=== PATIENT | male | born 1955 | race Caucasian/White ===

== ENCOUNTER 2024-07-21 07:32 | Day surgery (SDC) | payer MEDICARE, BC, SELFPAY ==
--- OUTSIDE RECORDS SUMMARY | 2024-07-01 09:20 | XMS_ITS ---
Author Organization [facility] Address [address] [place] [address] Care Team Providers Care Digital Marketing Officer Name Role Phone TONNY CHAWLA CNP Primary Care Provider Keenan Tolliver Jr Unavailable ALLERGIES No Known Allergies REASON FOR VISIT Patient presents today for constipation MEDICATIONS Medication SIG (Take, Route, Frequency, Duration) Notes Start Date End Date Status Anusol-HC 25 MG 1 suppository Rectal Once a day for 14 day(s) 12/18/2023 Active Omeprazole 20 MG 1 capsule 30 minutes before morning meal Orally Once a day for 30 day(s) 07/25/2023 Active MiraLax (colon prep) 17 GM/SCOOP mixed with Gatorade or Crystal Light Orally begin at 5:00 p.m. the day before the procedure for 1 day 12/18/2023 Active Ciprofloxacin HCl 500 MG TAKE 1 TABLET BY MOUTH TWICE DAILY Oral for 28 N410,Unavailab le Active Triamcinolone Acetonide 0.1 % External for 25 L299,Unavailab le Active Tamsulosin HCl 0.4 MG 1 capsule Orally O nce a day for 30 day(s) 06/17/2023 Active Atorvastatin Calcium 40 MG 1 tablet Orally Once a day for 30 day(s) 06/17/2023 Active Irbesartan 150 MG Oral for 90 Active Finasteride 5 MG 1 tablet Orally Once a day for 30 day(s) 06/17/2023 Active Aspirin 81 81 MG 1 tablet Orally Once a day for 30 day(s) 06/17/2023 Active SOCIAL HISTORY Tobacco Use: Social History Observation Description Date Details (start date - stop date) Never Smoker NA - NA Sex Assigned At : Social History Observation Description Sex Assigned At Unknown Tobacco Use/Smoking Question Answer Notes Patient is a nonsmoker Alcohol Screen Question Answer Notes Did you have a drink contain ing alcohol in the past year? Yes How often did you have a dri nk containing alcohol in the past year? Never (0 point) How many drinks did you have on a typical day when you were drinking in the past year? 1 or 2 drinks (0 point) How often did you have 6 or more drinks on one occasion in the past year? Never (0 point) Points 0 Interpretation Negative PROBLEMS Problem Type ICD Code Onset Dates Problem Status W/U Status Risk SNOMED Code Notes Problem Colon cancer screening (Z12.11) Active confirmed 568713000 VITAL SIGNS BMI 28.50 kg/m2 12/18/2023 Blood pressure systolic 000 mm Hg 12/18/19 24 Blood pressure diastolic 00 mm Hg 024 Height 5 ft 7 in in 12/18/2023 Temperature 98.2 degrees Fahrenheit 12/18/19 24 Weight 182 lbs 12/18/2023 Encounters Encounter Location Date Provider Diagnosis [facility] [address] [place] [phone] 12/18/2023 Keenan Lopez Jr Colon cancer screening Z12.11 ; Gastroesophageal reflux disease, unspecified whether esophagitis present K21.9 and Irritable bowel syndrome, unspecified type K58.9 ASSESSMENTS Encounter Date Diagnosis Assessment Notes Treatment Notes Treatment Clinical Notes 12/18/2023 Colon cancer screeni ng (ICD-10 - Z12.11) 12/18/2023 Gastroesophageal ref lux disease, unspecified whether esophagitis present (ICD-10 - K21.9) 12/18/2023 Irritable bowel syndrome, unspecified type (ICD-10 - K58.9) PLAN OF TREATMENT Medication Medication Name Sig Start Date Stop Date Notes Anusol-HC 25 MG 1 suppository Rectal Once a day for 14 day(s) 12/18/2023 MiraLax (colon prep) 17 GM/SCOOP mixed with Gatorade or Crystal Light Orally begin at 5:00 p.m. the day before the procedure for 1 day 12/18/2023 Future Test Test Name Order Date COLONOSCOPY 12/18/2023 Next Appt Details Follow Up: 1 Year, Reason: Provider Name:Keenan garcia Jr, 07/21/2024 09:10:00 AM, [address] [place] [address] , [place], [place], [phone],
--- OUTSIDE RECORDS SUMMARY | 2024-07-01 09:20 | XMS_ITS | Patient Health Record ---
Author Organization [facility] Address [address] [place] [address] Care Team Providers Care Mathematical Sciences Professor Name Role Phone TONNY CHAWLA CNP Primary Care Provider Keenan Tolliver Jr Unavailable [phone] ALLERGIES No Known Allergies REASON FOR REFERRAL No Information MEDICATIONS Medication SIG (Take, Route, Frequency, Duration) Notes Start Date End Date Status Anusol-HC 25 MG 1 suppository Rectal Once a day for 14 day(s) 12/18/2023 Active Omeprazole 20 MG 1 capsule 30 minutes before morning meal Orally Once a day for 30 day(s) 07/25/2023 Active Tamsulosin HCl 0.4 MG 1 capsule Orally O nce a day for 30 day(s) 06/17/2023 Active Atorvastatin Calcium 40 MG 1 tablet Orally Once a day for 30 day(s) 06/17/2023 Active MiraLax (colon prep) 17 GM/SCOOP mixed with Gatorade or Crystal Light Orally begin at 5:00 p.m. the day before the procedure for 1 day 12/18/2023 Active Ciprofloxacin HCl 500 MG TAKE 1 TABLET BY MOUTH TWICE DAILY Oral for 28 N410,Unavailab le Active Triamcinolone Acetonide 0.1 % External for 25 L299,Unavailab le Active Irbesartan 150 MG Oral for 90 Active Finasteride 5 MG 1 tablet Orally Once a day for 30 day(s) 06/17/2023 Active Aspirin 81 81 MG 1 tablet Orally Once a day for 30 day(s) 06/17/2023 Active Omeprazole 20 MG 1 Orally Once a day every morning for 90 days 02/28/2024 Active IMMUNIZATIONS Vaccine Route Administration Date Status Comme nts Influenza Unknown 04/30/2023 Administered SOCIAL HISTORY Tobacco Use: Social History Observation [...] W/U Status Risk SNOMED Code Notes Problem Gastroesophageal reflux disease, unspecified whether esophagitis present (K21.9) Active confirmed [id number] Problem Irritable bowel syndrome, unspecified type (K58.9) Active confirmed 39426300 Problem Colon cancer screening (Z12.11) Active confirmed [id number] VITAL SIGNS Temperature 98.2 degrees Fahrenheit 12/18/2023 Blood pressure diastolic 00 mm Hg 12/18/2023 Height 5 ft 7 in in 12/18/2023 Blood pressure systolic 000 mm Hg 12/18/2023 Weight 182 lbs 12/18/2023 BMI 28.50 kg/m2 12/18/2023 Encounters Encounter Location Date Provider Diagnosis [facility] [address] [place] [phone] 12/18/2023 Keenan Lopez Jr Colon cancer screening Z12.11 ; Gastroesophageal reflux disease, unspecified whether esophagitis present K21.9 and Irritable bowel syndrome, unspecified type K58.9 [facility] [address] [place] [phone] 07/25/2023 Keenan Lopez Jr Gastroesophageal reflux disease, unspecified whether esophagitis present K21.9 and Irritable bowel syndrome, unspecified type K58.9 [facility] [address] [place] [phone] 02/28/2024 Keenan Lopez Jr ASSESSMENTS Encounter Date Diagnosis Assessment Notes Treatment Notes Treatment Clinical Notes 12/18/2023 Colon cancer screening (ICD-10 - Z12.11) 12/18/2023 Gastroesophageal reflux disease, unspecified whether esophagitis present (ICD-10 - K21.9) 07/25/2023 Irritable bowel syndrome, unspecified type (ICD-10 - K58.9) 07/25/2023 Gastroesophageal reflux disease, unspecified whether esophagitis present (ICD-10 - K21.9) Gastroesophageal reflux disease material was printed 12/18/2023 Irritable bowel syndrome, unspecified type (ICD-10 - K58.9) PLAN OF TREATMENT Future Test Test Name Order Date COLONOSCOPY 12/18/2023 Next Appt Details Provider Name:Keenan garcia Jr, 07/21/2024 09:10:00 AM, [address] [place] [address] , [place], [place], [phone], Insurance Providers Payer Name Payer Address Payer Phone Subscriber Number Group Number Insured Name Patient Relationship to Insured Coverage Start Date Coverage End Date MEDICARE OF [place] [address] [place], [place] [id number] JUAN MITCHELL Self - patient is the insured [facility] [address] [place] [address] [id number] JUAN MITCHELL Self - patient is the insured MEDICAL (GENERAL) HISTORY Medical History History ICD Code Hypertension Coronary artery disease IBS with diarrhea and constipation MGUS BPH Gastroesophageal reflux disease Hyperlipidemia Gastroesophageal reflux disease, EGD , fundic gland polyps. Colonoscopy 08/03, tubular adenoma, 7 mm, five-year followup Surgical History Surgery Date(Month/Year) CABG x3 2017 lithotripsy 2018 Cataract repair Hospitalization History Reason Date(Month/Year) Hyponatremia 2014
--- OUTSIDE RECORDS SUMMARY | 2024-07-01 09:20 | XMS_ITS ---
Author Organization [facility] Address [address] [place] [phone] Care Team Providers Care Swimming Pool Service Technician Name Role Phone TONNY CHAWLA CNP Primary Care Provider Fredrick Lopez Jr, Keenan Camarena REASON FOR VISIT NEEDS REFILL ON OMEPRAZOLE MEDICATIONS Medication SIG (Take, Route, Fr equency, Duration) Notes Start Date End Date Status Omeprazole 20 MG 1 Orally Once a day every morning for 90 days 02/28/2024 Active Encounters Encounter Location Date Provider Diagnosis [facility] [address] [place] [phone] 02/28/2024 Keenan Lopez Jr PLAN OF TREATMENT Medication Medication Name Sig Start Date Stop Date Notes Omeprazole 20 MG 1 Orally Once a day every morning for 90 days 02/28/2024 Next Appt Details Provider Name:Keenan garcia Jr, 07/21/2024 09:10:00 AM, [address] [facility] , [place], [place], [phone],
--- OUTSIDE RECORDS SUMMARY | 2024-07-01 09:20 | XMS_ITS ---
Author Organization [facility] Address [address] [place] [address] Care Team Providers Care Kitchen Food Server Name Role Phone TONNY CHAWLA CNP Primary Care Provider Keenan Tolliver Jr Unavailable ALLERGIES No Known Allergies REASON FOR VISIT patient presents today for change in bowels MEDICATIONS Medication SIG (Take, Route, Frequency, Duration) Notes Start Date End Date Status Omeprazole 20 MG 1 capsule 30 minutes before morning meal Orally Once a day for 30 day(s) 07/25/2023 Active Atorvastatin Calcium 40 MG 1 tablet Orally Once a day for 30 day(s) 06/17/2023 Active Tamsulosin HCl 0.4 MG 1 capsule Orally Once a day for 30 day(s) 06/17/2023 Active Triamcinolone Acetonide 0.1 % External for 25 L299,Unavailabl e Active Ciprofloxacin HCl 500 MG TAKE 1 TABLET BY MOUTH TWICE DAILY Oral for 28 N410,Unavailabl e Active Irbesartan 150 MG Oral for 90 Active Aspirin 81 81 MG 1 tablet Orally Once a day for 30 day(s) 06/17/2023 Active Finasteride 5 MG 1 tablet Orally [...] Never (0 point) Points 0 Interpretation Negative VITAL SIGNS BMI 29.60 kg/m2 07/25/2023 Blood pressure systolic 00 mm Hg 07/25/19 24 Blood pressure diastolic 00 mm Hg 024 Height 5 ft 7 in in 07/25/2023 Temperature 97.7 degrees Fahrenheit 07/25/19 24 Weight 189 lbs 07/25/2023 Encounters Encounter Location Date Provider Diagnosis [facility] [address] [place] [address] 07/25/2023 Keenan Lopez Jr Gastroesophageal reflux disease, unspecified whether esophagitis present K21.9 and Irritable bowel syndrome, unspecified type K58.9 ASSESSMENTS Encounter Date Diagnosis Assessment Notes Treatment Notes Treatment Clinical Notes 07/25/2023 Gastroesophageal reflux disease, unspecified whether esophagitis present (ICD-10 - K21.9) Gastroesophageal reflux disease material was printed 07/25/2023 Irritable bowel syndrome, unspecified type (ICD-10 - K58.9) PLAN OF TREATMENT Medication Medication Name Sig Start Date Stop Date Notes Omeprazole 20 MG 1 capsule 30 minutes before morning meal Orally Once a day for 30 day(s) 07/25/2023 Treatment Notes Assessment Notes Gastroesophageal reflux dise ase, unspecified whether esophagitis present Gastroesophageal reflux disease material was printed Next Appt Details Follow Up: 6 Months, Reason: Provider Name:Keenan garcia Jr, 07/21/2024 09:10:00 AM, [address] [place] [address] , [place], [place], [phone],
[2024-07-17 15:27] VITALS: BMI 28.5
--- NOTE | 2024-07-20 09:41 | P.CONAN_ITS ---
Documented by User: Shaunna Sanders NP 07/20/24 09:44 HPI - Anesthesia Eval Consult details Narrative: 69yo M for Colonoscopy CAD s/p CABG 2016. Follows [facility] cardiology yearly - stable at 04/2024 office visit [facility] Past Medical History Medical History Hyperlipidemia GERD (gastroesophageal reflux disease) BPH (benign prostatic hyperplasia) MGUS (monoclonal gammopathy of unknown significance) IBS (irritable bowel syndrome) CAD (coronary artery disease) HTN (hypertension) Surgical History Surgical History Hx of cataract extraction Hx of lithotripsy (~2017) Hx of CABG (~2016) Hx of colonoscopy (~07/2019) History of esophagogastroduodenoscopy (EGD) (~06/2022) Social History Social History Patient Tobacco Use Status: Never used Tobacco Advance Directives: No Advance Directives Information Provided: Yes Meds Allergies Allergy/AdvReac Type Severity Reaction Status Date / Time No Known Allergies Allergy Verified 07/21/24 08:23 Home Medications ?Medication ?Instructions ?Recorded ?Confirmed ?Last Taken ?Type aspirin 81 mg tablet,delayed 81 mg PO DAILY 07/17/24 07/21/24 Unknown History release atorvastatin 40 mg tablet 40 mg PO DAILY 07/17/24 07/21/24 Unknown History finasteride 5 mg tablet 5 mg PO DAILY 07/17/24 07/21/24 07/21/24 History irbesartan 150 mg tablet 150 mg PO DAILY 07/17/24 07/21/24 Unknown History omeprazole 20 mg capsule,delayed 20 mg PO QAM 07/17/24 07/21/24 07/21/24 History release tamsulosin 0.4 mg capsule 0.8 mg PO BEDTIME 07/17/24 07/21/24 Unknown History Exam Height,Weight and Vital Signs: Height 5 ft 7 in Weight 82.554 kg Pertinent Lab Results Pertinent Lab Results: Lab ResultsCardiology Labs WBC: 8.3 x10E3/uL (04/13/24) RBC: 4.76 (04/13/24) Hgb:?11.9 Gm/dL?Low (04/13/24) Hct: 38.9 % (04/13/24) MCV: 82 fL (04/13/24) MCH:?25 pg?Low (04/13/24) MCHC:?30.6 Gm/dL?Low (04/13/24) Platelet Count: 290 x10E3/uL (04/13/24) RDW-SD: 42.9 femtoliters (09/02/23) Nucleated RBC (Automated): 0 #/100 WBC'S (09/02/23) Abs. Neut: 4.2 x10E3/uL (04/13/24) Abs. Lymph: 2 x10E3/uL (04/13/24) Abs. [place]: 0.9 x10E3/uL (04/13/24) Abs. Eo:?1.1 x10E3/uL?High (04/13/24) Abs. Baso: 0.1 x10E3/uL (04/13/24) Neut %: 51 % (04/13/24) [place]asta %: 11 % (04/13/24) Eos %: 13 % (04/13/24) Baso %: 1 % (04/13/24) Imm Gran: 0 % (04/13/24) Abs. Imm Gran: 0 x10E3/uL (04/13/24) Sodium: 137 mmol/L (04/13/24) Potassium: 4.5 mmol/L (04/13/24) Chloride: 101 mmol/L (04/13/24) Bicarbonate Level: 21 mmol/L (04/13/24) Glucose Level: 91 mg/dL (04/13/24) Hemoglobin A1C (Monitoring):?6 %?High (04/08/24) BUN: 14 mg/dL (09/02/23) BUN: 22 mg/dL (04/13/24) Creatinine-Blood: 0.88 mg/dL (04/13/24) Calcium: 9.7 mg/dL (04/13/24) Protein, Total: 7.4 Gm/dL (04/08/24) Protein, Total: 7.5 g/dL (04/08/24) Albumin: 4.2 Gm/dL (04/08/24) Albumin: 4.4 g/dL (04/08/24) Alkaline Phosphatase: 88 IU/L (04/08/24) Alkaline Phosphatase: 90 IU/L (04/08/24) AST (SGOT): 28 IU/L (04/08/24) AST (SGOT): 28 IU/L (04/08/24) ALT (SGPT): 22 IU/L (04/08/24) ALT (SGPT): 20 IU/L (04/08/24) Bilirubin, Total: 0.6 mg/dL (04/08/24) Bilirubin, Total: 0.5 mg/dL (04/08/24) Cholesterol: 126 mg/dL (09/02/23) Triglycerides: 70 mg/dL (09/02/23) HDL Cholesterol: 49 mg/dL (09/02/23) LDL Cholesterol: 63 mg/dL (09/02/23) Non HDL Cholesterol: 77 mg/dL (09/02/23) Narrative Narrative: ECGECG 12-Lead ? 23:12:58 Please click on pdf link to open report ? Signed By: Bishop Briggs MD ? ECG 12-Lead ? 23:12:58 Ventricular Rate: 73 BPM Atrial Rate: 73 BPM P-R Interval: 158 ms QRS Duration: 110 ms Q-T Interval: 388 ms QTC Calculation(Bazett): 427 ms P [place]: 36 degrees R [place]: -14 degrees T [place]: 13 degrees Sinus rhythm with occasional Premature ventricular complexes Moderate voltage criteria for LVH, may be normal variant ( R in aVL , Jose product ) Incomplete right bundle branch block When compared with ECG of 25-AUG-2023 22:54, Premature ventricular complexes are now Present Confirmed by JAIME BRIGGS MD ([id number]) on 08/26/2023 9:00:54 PM [place]: JAIME BRIGGS MD ? Signed By: Bishop Briggs MD Stress Test NM Myocard Perf SPECT Multi ? 07:30:00 Summary No evidence of stress induced ischemia or prior myocardial infarction. Normal left ventricular ejection fraction, no wall motion abnormalities, normal chamber size. Signatures _ _ ? Signed By: Megan TOTH, [place] Jain EchoEchocardiogram - Complete ? 14:22:46 Summary Normal left ventricular size and function with ejection fraction of 60-65%. No focal wall motion abnormalities. Normal right ventricular size and function. No significant valvular disease. Comparison No prior study available for comparison. Signature ? Signed By: Brigitte TOTH, Bishop Documented by User: Sonam Foster MD 07/21/24 08:39 PMFSH Past Medical History Medical History Hyperlipidemia GERD (gastroesophageal reflux disease) BPH (benign prostatic hyperplasia) MGUS (monoclonal gammopathy of unknown significance) IBS (irritable bowel syndrome) CAD (coronary artery disease) HTN (hypertension) Family History Family history of problems with anesthesia: No Surgical History Surgical History Hx of cataract extraction Hx of lithotripsy (~2017) Hx of CABG (~2016) Hx of colonoscopy (~07/2019) History of esophagogastroduodenoscopy (EGD) (~06/2022) History of Problems with Anesthesia: No Social History Social History Patient Tobacco Use Status: Never used Tobacco Advance Directives: No Advance Directives Information Provided: Yes Meds Allergies Allergy/AdvReac Type Severity Reaction Status Date / Time No Known Allergies Allergy Verified 07/21/24 08:23 Home Medications ?Medication ?Instructions ?Recorded ?Confirmed ?Last Taken ?Type aspirin 81 mg tablet,delayed 81 mg PO DAILY 07/17/24 07/21/24 Unknown History release atorvastatin 40 mg tablet 40 mg PO DAILY 07/17/24 07/21/24 Unknown History finasteride 5 mg tablet 5 mg PO DAILY 07/17/24 07/21/24 07/21/24 History irbesartan 150 mg tablet 150 mg PO DAILY 07/17/24 07/21/24 Unknown History omeprazole 20 mg capsule,delayed 20 mg PO QAM 07/17/24 07/21/24 07/21/24 History release tamsulosin 0.4 mg capsule 0.8 mg PO BEDTIME 07/17/24 07/21/24 Unknown History Exam Airway Mallampati Class: II TM Dist: >3cm Neck ROM: Limited Heart: rrr Lungs: cta Assessment and Plan Assessment Anesthesia Assessment: Anesthesia Plan Discussed Final Anesthetic Review Family History of Problems with Anesthesia: No History of Problems with Anesthesia: No NPO: Yes ASA Class: III Final Preanesthetic Review: No Changes in Pt Med Stat, Meds/Allgs Chart Reviewed, Consent Obtained/Reviewed and Anes Risks/Benef Reviewed Patient Risk: Intermediate Procedure Risk: Low Anesthetic Plan Anesthetic Plan: MAC: Disposition: Standard PACU
--- OUTSIDE RECORDS SUMMARY | 2024-07-21 07:35 | XMS_ITS ---
Author Organization [facility] Address [address] [place] [phone] Care Team Providers Care Bell Maker Name Role Phone TONNY CHAWLA CNP Primary Care Provider Fredrick Lopez Jr, Keenan Camarena REASON FOR VISIT NEEDS REFILL ON OMEPRAZOLE MEDICATIONS Medication SIG (Take, Route, Fr equency, Duration) Notes Start Date End Date Status Omeprazole 20 MG 1 Orally Once a day every morning for 90 days 02/28/2024 Active Encounters Encounter Location Date Provider Diagnosis [facility] [address] [place] [phone] 02/28/2024 Keenan Lopez Jr PLAN OF TREATMENT Medication Medication Name Sig Start Date Stop Date Notes Omeprazole 20 MG 1 Orally Once a day every morning for 90 days 02/28/2024 Next Appt Details Provider Name:Keenan garcia Jr, 07/21/2024 08:30:00 AM, [address] [place] [address] , [place], [place], [phone],
--- OUTSIDE RECORDS SUMMARY | 2024-07-21 07:35 | XMS_ITS ---
Author Organization [facility] Address [address] [place] [address] Care Team Providers Care Supervisor Pipe Manufacture Name Role Phone TONNY CHAWLA CNP Primary Care Provider Fredrick Lopez Jr, Keenan Camarena [phone] REASON FOR VISIT screening Encounters Encounter Location Date Provider Diagnosis [facility] [address] [place], [place] [phone] 07/21/2024 Keenan Lopez Jr PLAN OF TREATMENT Next Appt Details Provider Name:Keenan garcia Jr, 07/21/2024 08:30:00 AM, [address] [facility] , [place], [place], [phone],
--- OUTSIDE RECORDS SUMMARY | 2024-07-21 07:35 | XMS_ITS | Continuity of Care Document ---
Author Organization [facility] Address [address] [place] [address]- Care Team Providers Care Oil Change Technician Name Role Phone Cori CROOKS, Tevin Hightower Primary Care Physician [id number] Date(s): 04/27/24 - 07/06/24 [facility] [address] [place] [address] Discharge Disposition: A-D/C Home Attending Physician: Slava TOTH(Hem/Onc), Saul Driscoll Admitting Physician: Adams Rosales MD Referring Physician: Tevin Persaud NP Encounter Type: Disch Recurring OP Allergies, Adverse Reactions, Alerts No Known Allergies Immunizations Given and Recorded Vaccine Date Status Refusal Reason influenza virus vaccine, inactivated 04/07/24 Mic rded influenza virus vaccine, inactivated 05/06/23 Mic rded influenza virus vaccine, inactivated 04/05/22 Mic rded influenza virus vaccine, inactivated 04/10/21 Mic rded influenza virus vaccine, inactivated 03/31/19 Mic rded RSV vaccine preF3, recombinant 06/10/23 Recorded SARS-CoV-2(COVID-19)mRNA-LNP vac([id number]) 05/29/23 Recorded [id number] bivalent booster vax 06/18/22 Recorded tetanus/diphtheria/pertussis, acel(Tdap) 1 02/20/22 Given tetanus/diphtheria/pertussis, acel(Tdap) 07/20/11 Recorded SARS-CoV-2 mRNA ([id number]) vax 10/26/21 Recorded SARS-CoV-2 (COVID-19) mRNA BNT-162b2 vac 04/14/21 Recorded SARS-CoV-2 (COVID-19) mRNA BNT-162b2 vac 10/07/20 Recorded SARS-CoV-2 (COVID-19) mRNA BNT-162b2 vac 09/16/20 Recorded pneumococcal 23-valent vaccine 02/16/21 Given zoster vaccine, inactivated 04/19/20 Recorded zoster vaccine, inactivated 02/16/20 Recorded Influenza Virus Vaccine (oldterm) 2 03/28/20 Recor ded Influenza Virus Vaccine (oldterm) 05/02/17 Recorde d Influenza Virus Vaccine (oldterm) 05/17/16 Recorde d Influenza Virus Vaccine (oldterm) 05/12/15 Recorde d Influenza Virus Vaccine (oldterm) 04/29/14 Recorde d Influenza Virus Vaccine (oldterm) 04/17/13 Recorde d Influenza Virus Vaccine (oldterm) 05/16/12 Recorde d Influenza Virus Vaccine (oldterm) 03/31/10 Recorde d Influenza Virus Vaccine (oldterm) 05/12/08 Recorde d Influenza Virus Vaccine (oldterm) 05/23/07 Recorde d Influenza Virus Vaccine (oldterm) 06/18/06 Recorde d Influenza Virus Vaccine (oldterm) 06/18/05 Recorde d pneumococcal 13-valent vaccine 03/31/19 Recorded Zoster Vaccine Live 12/09/14 Recorded 1Result Comment: [facility]:[id number] 2Result Comment: [address] Medications alfuzosin 10 mg oral tablet, extended release TAKE 1 TABLET BY MOUTH EVERY NIGHT AT BEDTIME Start Date: 09/10/23 Status: Ordered Repeat number: 1 Anusol-HC 25 mg suppository UNWRAP AND INSERT 1 SUPPOSITORY RECTALLY DAILY FOR 14 DAYS Start Date: 02/21/24 Status: Ordered Repeat number: 1 Aspirin Low Dose = 81 mg, By Mouth, Daily, 0 Refills, 01/17/09 9:07:12 AM EDT Start Date: 01/17/09 Status: Ordered Repeat number: 1 atorvastatin 40 mg oral tablet See Instructions, 1 tablet By Mouth every mon / wed/ fri, # 90 tablet, 3 Refills, Physician Stop 11/13/27 4:23:00 PM EDT, 11/30/22 4:20:00 PM EDT Start Date: 11/30/22 Stop Date: 11/13/27 Status: Ordered Quantity: 90.0 Unit: tablet Repeat number: 4 atorvastatin 40 mg oral tablet See Instructions, 1 tablet By Mouth every sat / sat/ sat, # 90 tablet, 3 Refills, Physician Stop 06/08/25 9:09:00 AM EST, 06/08/24 9:57:00 AM EST, [id number], 170, cm, 04/29/24 9:06:00 EDT, Height, 86.1, kg, 04/29/24 9:06:00 EDT, Dry Weight Start Date: 06/08/24 Stop Date: 06/08/25 Status: Ordered Quantity: 90.0 Unit: tablet Repeat number: 4 benzoyl peroxide 2.5% topical liquid Topically, 2 times a day, 0 Refills, Maintenance, 03/08/23 9:53:00 AM EDT, Partial fill upon patientrequest if the prescription is for a schedule II opioid drug. Start Date: 03/08/23 Status: Ordered Repeat number: 1 Dulcolax Stool Softener = 100 mg, By Mouth, 2 times a day, 0 Refills, Maintenance, 04/13/24 1:45:00 PM EDT, Partial fill upon patient request if the prescription is for a schedule II opioid drug. Start Date: 04/13/24 Status: Ordered Repeat number: 1 ferrous sulfate 325 mg oral enteric coated tablet 325 mg, 1, tablet, By Mouth, Daily, # 30 tablet, Refills 0, Tot. Refills 0, Maintenance, 04/14/24 1:14:00 PM EDT, Route to Pharmacy Electronically, [id number], Partial fill upon patient request if the prescription is for a schedule II opioid drug., 170, cm, 04/14/24 12:56:00 EDT, Height, 85.7, kg, 02/12/24 8:48:00 EDT, Dry Weight Start Date: 04/14/24 Status: Ordered Quantity: 30.0 Unit: tablet Repeat number: 1 finasteride 5 mg oral tablet 1 tablet = 5 mg, By Mouth, Daily, # 30 tablet, 0 Refills, Maintenance, 10/01/22 2:58:00 PM EDT, Tablet, Partial fill upon patient request if the prescription is for a schedule II opioid drug. Start Date: 10/01/22 Status: Ordered Quantity: 30.0 Unit: tablet Repeat number: 1 irbesartan 150 mg oral tablet 1 tablet = 150 mg, By Mouth, Daily, # 90 tablet, 3 Refills, Maintenance, 04/14/24 10:26:00 AM EDT, Tablet, [facility] #[id number], Partial fill upon patient request if the prescription is for a schedule II opioid drug., 170, cm, 04/13/24 13:46:00 EDT, Height, 85.7, kg, 02/12/24 8:48:00 EDT, DryWeight Start Date: 04/14/24 Status: Ordered Quantity: 90.0 Unit: tablet Repeat number: 4 Multi Vitamin+ 0 Refills, Maintenance, 04/13/24 1:45:00 PM EDT, Partial fill upon patient request if the prescription is for a schedule II opioid drug. Start Date: 04/13/24 Status: Ordered Repeat number: 1 nitroglycerin 0.4 mg sublingual tablet 1 tablet = 0.4 mg, Sublingual, Every 5 minutes, PRN as needed for chest pain, not to exceed 3 doses/15 min--if pain persists, seek medical attention, # 25 tablet, 11 Refills, Maintenance, 04/14/24 1:15:00 PM EDT, Tablet, [facility] #[id number], Partial fill upon patient request if the prescription is for a schedule II opioid drug., 170, cm, 04/14/24 12:56:00 EDT, Height, 85.7, kg, 02/12/24 8:48:00 EDT, Dry Weight Start Date: 04/14/24 Status: Ordered Quantity: 25.0 Unit: tablet Repeat number: 12 omeprazole 20 mg oral enteric coated capsule TAKE 1 CAPSULE BY MOUTH EVERY DAY 30 MINUTES BEFORE BREAKFAST Start Date: 09/10/23 Status: Ordered Repeat number: 1 Problem List Condition Confirmation Course Effective Dates Status H ealth Status Informant Medical orders for life-sustaining treatment (MOLST) form in chart Confirmed Active BPH with obstruction/lower urinary tract symptoms Confirmed Active Chronic hyponatremia 1 Confirmed Active CAD (coronary artery disease) Confirmed Active GERD without esophagitis Confirmed Active History of SIADH 2 Confirmed Active HLD (hyperlipidemia) Confirmed Active Hypertension Confirmed Active IBS (irritable bowel syndrome) Confirmed Active Measles, mumps, rubella (MMR) vaccination up to date 3 Confirmed Active MGUS (monoclonal gammopathy of unknown significance) Confirmed Active Prostatodynia syndrome Confirmed Active CAD S/P percutaneous coronary angioplasty Confirmed Active 1saw Dr. Torres on 11/16/2019 - repeat labs in December and February. Wants to make sure its not weatherrelated. 2sees Nephrology 3Per Labs Vital Signs Most recent to oldest [Reference Range]: 1 Height 170 cm (04/29/24 9:06 AM) Weight 86.1 kg (04/29/24 9:06 AM) Oxygen Saturation [94-100 %] 100 % (04/29/24 9:06 AM) Pulse Rate [55-90 bpm] 79 bpm (04/29/24 9:06 AM) Body Mass Index [18.5-24.99 kg/m2] 29.79 kg/m2 *H* (04/29/24 9:06 AM) Blood Pressure [90-138/55-84 mm Hg] 143/ 84mm Hg *H* (04/29/24 9:06 AM) Temperature [96.8-100.4 DegF] 97.8 DegF (04/29/24 9:06 AM) Mode of Delivery (Oxygen) Room air (04/29/24 9:06 AM) Blood pressure sites Arm, left (04/29/24 9:06 AM) Temperature Route Oral (04/29/24 9:06 AM) Dry Weight 86.1 kg (04/29/24 9:06 AM) Weight Obtained Via Standing scale (04/29/24 9:06 AM) Dry Weight Obtained Via Standing scale (04/29/24 9:06 AM) Social History Social History Type Response Smoking Status Never (less than 100 in lifetime);Never entered on: 02/20/22 Sex Sex Representation Male (finding) Cytogenetics study * Slava TOTH(Hem/Onc), Saul Driscoll: ENDORSE Event Display: Cytogenetics Report Authored Date: [id number] Patient Name: JUAN MITCHELL Lab Accesssion #: [id number] Patient : 1955 (Age: 69) Collection Date: 04/29/2024 Accession Date: 04/29/2024 Sign Out Date: 04/30/2024 Tissue Source: 1: PLASMA CELL FLOW CYTOMETRY @ IO Final Diagnosis: The complete [facility] Plasma Cell Flow Cytometry results report is available in [facility], under [employer]. See???case [id number]. Primary Pathologist: KODY HASSAN M.D. Phone #: [phone], On-Call Pathologist: [id number] Patient Care team information Care Team Personnel Name: Leslie Driver Position: [facility] Onco RN Member Role: Primary Care Nurse Name: Cori CROOKS, Tevin Hightower Position: [facility] PCO Associate Professional Member Role: PCP Address: [address] [place] [address] [place] [address]- Telecom: Name: Slava TOTH(Hem/Onc)Saul Position: [facility] Physician - Oncology Med Service: Hematology & Oncology Member Role: Attending Physician Address: [address] [place] [address] for Cancer Care [facility] [place] [address]- [place] Telecom: Care Team Related Persons Name: GLENROY MITCHELL Name: NANY SÁNCHEZ Name: TIANNA HUNTER Insurance Providers Guarantor name: JUAN MITCHELL Health Plan Information #: 1 Payer: MEDICARE PART B OUTPT Member Number: [id number] Policy Number: NA Group Number: NA Health Plan Information #: 2 Payer: [employer] SUPPL Member Number: [id number] Policy Number: NA Group Number: [id number]
--- OUTSIDE RECORDS SUMMARY | 2024-07-21 07:35 | XMS_ITS | Continuity of Care Document ---
Author Organization [facility] Address [address] [place] [address]- Care Team Providers Care Cartographic Aide Name Role Phone Cori CROOKS, Tevin Hightower Primary Care Physician Encounter [facility] Date(s): 06/08/24 - 07/08/24 [facility] [address] [place], [place] [address] Encounter Type: Triage Allergies, Adverse Reactions, Alerts No Known Allergies Immunizations Given and Recorded Vaccine Date Status Refusal Reason influenza virus vaccine, inactivated 04/07/24 Mic rded influenza virus vaccine, inactivated 05/06/23 Mic rded influenza virus vaccine, inactivated 04/05/22 Mic rded influenza virus vaccine, inactivated 04/10/21 Mic rded influenza virus vaccine, inactivated 03/31/19 Mic rded RSV vaccine preF3, recombinant 06/10/23 Recorded SARS-CoV-2(COVID-19)mRNA-LNP vac(uks005) 05/29/23 Recorded [id number] bivalent booster vax 06/18/22 Recorded tetanus/diphtheria/pertussis, acel(Tdap) 1 02/20/22 Given tetanus/diphtheria/pertussis, acel(Tdap) 07/20/11 Recorded SARS-CoV-2 mRNA (xcvbwqz-yvhx-sbigo) vax 10/26/21 Recorded SARS-CoV-2 (COVID-19) mRNA BNT-162b2 [...] Zoster Vaccine Live 12/09/14 Recorded 1Result Comment: [facility]:[phone] 2Result Comment: [address] Medications alfuzosin [...] 1 tablet By Mouth every mon / sat/ sat, # 90 tablet, 3 Refills, Physician Stop 11/13/27 4:23:00 PM EDT, 11/30/22 4:20:00 PM EDT Start Date: 11/30/22 Stop Date: 11/13/27 Status: Ordered Quantity: 90.0 Unit: tablet Repeat number: 4 atorvastatin 40 mg oral tablet See Instructions, 1 tablet By Mouth every mon / sat/ sat, # 90 tablet, 3 Refills, Physician Stop 06/08/25 9:09:00 AM EST, 06/08/24 9:57:00 AM EST, [facility] #[id number], 170, cm, 04/29/24 9:06:00 EDT, Height, 86.1, [...] 1:14:00 PM EDT, Route to Pharmacy Electronically, [facility] #[id number], Partial fill upon patient request if the [...] Refills, Maintenance, 04/14/24 10:26:00 AM EDT, Tablet, [facility][id number], Partial fill upon patient request if the [...] Refills, Maintenance, 04/14/24 1:15:00 PM EDT, Tablet, [facility] #[id number], Partial fill upon patient request if the [...] its not weatherrelated. 2sees Nephrology 3Per Labs Social History Social History Type Response Smoking Status Never (less than 100 in lifetime);Never entered on: 02/20/22 Sex Sex Representation Male (finding) Patient Care team information Care Team Personnel Name: Leslie Driver Position: [facility] Onco RN Member Role: Primary Care Nurse Name: Tevin Persaud NP Position: [facility] PCO Associate Professional Member Role: PCP Address: [address] [place] [address] [place] [address]- Telecom: Care Team Related Persons Name: GLENROY MITCHELL Name: NANY SÁNCHEZ Name: TIANNA HUNTER Insurance Providers Guarantor name: JUAN MITCHELL Health Plan Information #: 1 Payer: MEDICARE PART B OUTPT Member Number: NA Policy Number: NA Group Number: NA Health Plan Information #: 2 Payer: [employer] Member Number: NA Policy Number: NA Group Number: NA
--- OUTSIDE RECORDS SUMMARY | 2024-07-21 07:36 | XMS_ITS | Patient Health Record ---
Author Organization [facility] Address [address] [place] [address] Care Team Providers Care Station Manager Name Role Phone TONNY CHWALA CNP Primary Care Provider Keenan Tolliver Jr Unavailable ALLERGIES No Known Allergies REASON FOR REFERRAL [...] unspecified whether esophagitis present (K21.9) Active confirmed [id number] Problem Irritable bowel syndrome, unspecified type (K58.9) Active confirmed [id number] Problem Colon cancer screening (Z12.11) Active confirmed [id number] VITAL SIGNS Temperature 98.2 degrees Fahrenheit 12/18/2023 Blood pressure diastolic 00 mm Hg 12/18/2023 Height 5 ft 7 in in 12/18/2023 Blood pressure systolic 000 mm Hg 12/18/2023 Weight 182 lbs 12/18/2023 BMI 28.50 kg/m2 12/18/2023 Encounters Encounter Location Date Provider Diagnosis [facility] [place] [address] [place] [id number] 07/21/2024 Keenan Lopez Jr [facility] [address] [place] [phone] 12/18/2023 Keenan Lopez Jr Colon cancer screening Z12.11 ; Gastroesophageal reflux disease, unspecified whether esophagitis present K21.9 and Irritable bowel syndrome, unspecified type K58.9 [facility] [address] [place] [phone] 07/25/2023 Keenan Lopez Jr Gastroesophageal reflux disease, unspecified whether esophagitis present K21.9 and Irritable bowel syndrome, unspecified type K58.9 [facility] [address] [place] [phone] 02/28/2024 Keenan Lopez Jr ASSESSMENTS Encounter Date [...] Provider Name:Keenan garcia Jr, 07/21/2024 08:30:00 AM, [address] [place] [address] , [place], [place], [phone], Insurance Providers Payer Name Payer Address Payer Phone Subscriber Number Group Number Insured Name Patient Relationship to Insured Coverage Start Date Coverage End Date MEDICARE OF [place] [address] [place] [address] [id number] JUAN MITCHELL Self - patient is the insured [facility] [address] [place] [address] [id number] JUAN MITCHELL Self - patient is the [...]
--- OUTSIDE RECORDS SUMMARY | 2024-07-21 07:36 | XMS_ITS ---
Author Organization [facility] Address [address] [place] [address] Care Team Providers Care Feature Writer Name Role Phone TONNY CHAWLA CNP Primary [...] Problem Colon cancer screening (Z12.11) Active confirmed [id number] VITAL SIGNS BMI 28.50 kg/m2 12/18/2023 Blood pressure systolic 000 mm Hg 12/18/19 24 Blood pressure diastolic 00 mm Hg 024 Height 5 ft 7 in in 12/18/2023 Temperature 98.2 degrees Fahrenheit 12/18/19 24 Weight 182 lbs 12/18/2023 Encounters Encounter Location Date Provider Diagnosis [facility] [address] [place] [phone] 12/18/2023 Keenan Lopez Jr Colon cancer screening [...] Year, Reason: Provider Name:Keenan garcia Jr, 07/21/2024 08:30:00 AM, [address] [place] [address] , [place], [place], [phone],
[2024-07-21 08:26] VITALS: BP 141/92; PULSE 66; RESP 16; O2SAT 99
--- NOTE | 2024-07-21 09:08 | MHC.SHP ---
Pre-Procedural Eval Section A - 24 Hr Update-Section A only Date of Service: 07/21/24 Section B - Complete if H&P > 30 days Chief Complaint: screening Details of Present Illness: see H&P NO CHANGES Relevant Family History (Specify if Yes): No Relevant Social History: None Present Medications: see Short Stay Collaborative assessment Medical History: No relevant PMH History of Previous Operations: No relevant previous surgery Allergies: Allergies Allergy/AdvReac Type Severity Reaction Status Date / Time No Known Allergies Allergy Verified 07/21/24 08:23 Review of Systems Sugical H&P ROS: Negative: Constitution, Cardiovascular, Respiratory, Neurological, Psychiatric, Hem-Onc, Allergic/Immunologic, Gastrointestinal, Genitourinary, Musculoskeletal, Integumentary, Endocrine and Eyes/Ears/Nose/Throat Exam Surgical H&P Exam: Normal: HEENT, Normal: Heart, Normal: Lungs, Normal: Extremities, Normal: Abdomen, Normal: Skin and Normal: Neurological Plan Diagnosis/Plan: Unchanged I have reviewed the history and physical and performed a pertinent physical examination on my patient. No changes have occurred unless specified. Time Spent With Patient Time: Total time managing care of this patient today ____ minutes.
[2024-07-21 09:41] VITALS: BP 110/71; PULSE 72; RESP 16; TEMP 36.5; O2SAT 97
[2024-07-21 09:56] VITALS: BP 125/77; PULSE 67; RESP 18; TEMP 36.6; O2SAT 98
--- NOTE | 2024-07-21 10:01 | OP_ITS ---
DATE OF SERVICE: 07/21/2024 SURGEON: Keenan Lopez MD INDICATIONS: Colon cancer screening. PREOPERATIVE DIAGNOSIS: POSTOPERATIVE DIAGNOSIS: PROCEDURE PERFORMED: ESTIMATED BLOOD LOSS: COMPLICATIONS: ANESTHESIA: ASSISTANTS: SPECIMENS: PROCEDURE: Colonoscopy to the terminal ileum with biopsy. MEDICATIONS: Monitored anesthesia care. DESCRIPTION OF PROCEDURE: A history and physical was performed. The risks and benefits of the procedure were explained to the patient. Informed consent was obtained. The patient was placed in the left lateral decubitus position. A digital rectal exam was performed and was found to be normal. The Olympus pediatric video colonoscope was introduced into the rectum and advanced to the cecum. The cecum was identified by transillumination, palpation, and identification of ileocecal valve. Examination was performed. The scope was removed. He tolerated the procedure well and was returned to recovery area in stable condition. FINDINGS: The terminal ileum was examined and appeared normal. The visualized colonic mucosa was normal. The quality of the prep was good. A single polyp measuring less than 5 mm was identified at 75 cm from the anal verge. This was removed with biopsy forceps. No other polyps were identified. The quality of prep was good. Retroflexed examination showed moderate-sized internal hemorrhoids. IMPRESSION: Colon polyp. RECOMMENDATION: Follow up the biopsy results. MD AMY Obrien/OCTAVIA / [id number]
== END 2024-07-21 10:30 | disposition home or self-care (01) ==
PROVIDERS: PCP Nurse Practitioner Family; Visit Provider Internal Medicine Gastroenterology
PROC: 0DJD8ZZ Inspection of Lower Intestinal Tract, Via Natural or Artificial Opening Endoscopic (ICD-10-PCS; CPT 45378; principal; 2024-07-21 09:20)
DX: Z12.11 Encounter for screening for malignant neoplasm of colon (principal); Z86.0101 Personal history of adenomatous and serrated colon polyps; K63.5 Polyp of colon; K64.8 Other hemorrhoids; K58.1 Irritable bowel syndrome with constipation; K21.9 Gastro-esophageal reflux disease without esophagitis; I10 Essential (primary) hypertension; E78.5 Hyperlipidemia, unspecified; D47.2 Monoclonal gammopathy; I25.10 Atherosclerotic heart disease of native coronary artery without angina pectoris; Z95.1 Presence of aortocoronary bypass graft; Z79.82 Long term (current) use of aspirin; Z79.899 Other long term (current) drug therapy; Z87.442 Personal history of urinary calculi
CPT/HCPCS: 45380; 88305; J2704